=== PATIENT | male | born 1990 | race Caucasian/White ===

== ENCOUNTER 2025-01-31 10:30 | Emergency (ER) | payer MEDICAID ==
[~2025-01-31] VITALS: Ht 180.3 cm; Wt 86.2 kg
[2025-01-31 10:38] VITALS: BP 105/64; TEMP 97.8
[2025-01-31 11:10] VITALS: O2SAT 98
== END 2025-01-31 11:11 | disposition home or self-care (01) ==
LOC: ER 10:35
DX: K12.0 Recurrent oral aphthae (principal); K13.79 Other lesions of oral mucosa; F32.A Depression, unspecified